=== PATIENT | female | born 1995 | race Caucasian/White ===

== ENCOUNTER 2021-01-14 15:04 | Emergency (ER) | payer OTHER ==
[~2021-01-14] VITALS: Ht 160 cm; Wt 86.2 kg
[2021-01-14 15:16] VITALS: BP 138/77
[2021-01-14] MEDS ORDERED: POLY15SO74 OP (15:44)
[2021-01-14] MEDS ORDERED: ERYT5OIN51 OP (15:44)
[2021-01-14] MEDS ORDERED: PRED20TA5 PO (15:44)
[2021-01-14] MEDS ORDERED: ACYC400T14 PO (15:44)
[2021-01-14 15:53] VITALS: BP 137/67
== END 2021-01-14 15:53 | disposition home or self-care (01) ==
LOC: MED 15:04
DX: G51.0 Bell's palsy (principal); Z79.899 Other long term (current) drug therapy
CPT/HCPCS: 99283

== ENCOUNTER 2021-08-06 16:46 | Emergency (ER) | payer OTHER ==
[~2021-08-06] VITALS: Ht 160 cm; Wt 93.9 kg
[~2021-08-06 16:46] MED LIST: ACYC400T14 PO; ERYT5OIN51 OP; POLY15SO74 OP; PRED20TA5 PO
[2021-08-06 16:50] VITALS: BP 131/75
--- NOTE | 2021-08-06 17:00 | NUR ---
NOVEL AND FLU SWABS COLLECTED AND WALKED TO LAB.
[2021-08-06 17:17] VITALS: BP 131/75
--- NOTE | 2021-08-06 17:17 | NUR ---
Patient discharged with v/s stable. Written and verbal after care instructions ABOUT VIRAL RESPIRATORY INFECTION AND UPPER RESPIRATORY INFECTION given and explained. Patient verbalized understanding. Ambulatory with steady gait. All questions addressed prior to discharge. Advised to follow up with PMD.
== END 2021-08-06 17:17 | disposition home or self-care (01) ==
LOC: MED 16:46
DX: J06.9 Acute upper respiratory infection, unspecified (principal); Z20.822 Contact with and (suspected) exposure to COVID-19
CPT/HCPCS: 87804; 99283; U0003